=== PATIENT | male | born 1955 | race Caucasian/White ===

== ENCOUNTER 2018-08-25 10:06 | Emergency (ER) | payer OTHER ==
[~2018-08-25] VITALS: Ht 185.4 cm; Wt 105.7 kg
[2018-08-25] MEDS ORDERED: cefTRIAXone IM 1 GM VIAL IM ONE (10:15)
--- NOTE | 2018-08-25 10:22 | PHYS DOC ---
Past History Past Medical History: A-Fib Past Surgical History: Other Alcohol Use: None Drug Use: None Adult General Chief Complaint Chief Complaint: FOREIGN BODY HPI HPI 62-year-old male presents with foreign object in his right hand. The patient was working with some tools earlier today went to reach for a hammer and impaled his right thenar eminence with awl. It is 2-3 inches in length sticking into his hand. His , is concerned that his blood out without being at a medical facility so he came to the ED. The patient has no loss of feeling. There is no bleeding. He has full range of motion of all of his fingers. Patient denies any other injuries or complaints. Review of Systems Review of Systems Constitutional: Denies fever or chills [] Eyes: Denies change in visual acuity, redness, or eye pain [] HENT: Denies nasal congestion or sore throat [] Respiratory: Denies cough or shortness of breath [] Cardiovascular: No additional information not addressed in HPI [] GI: Denies abdominal pain, nausea, vomiting, bloody stools or diarrhea [] : Denies dysuria or hematuria [] Musculoskeletal: Foreign object in right hand[] Integument: Denies rash or skin lesions [] Neurologic: Denies headache, focal weakness or sensory changes [] Endocrine: Denies polyuria or polydipsia [] All other systems were reviewed and found to be within normal limits, except as documented in this note. Current Medications Current Medications Current Medications Medications (Trade) Dose Ordered Sig/[facility] Start Time Stop Time Status Last Admin Dose Admin Ceftriaxone Sodium (Rocephin Im) 1 gm 1X ONCE 08/25/18 10:15 08/25/18 10:16 UNV Allergies Allergies Allergies Coded Allergies Type Severity Reaction Last Updated Verified No Known Drug Allergies 07/08/15 No Physical Exam Physical Exam Constitutional: Well developed, well nourished, no acute distress, non-toxic appearance. [] HENT: Normocephalic, atraumatic, bilateral external ears normal, oropharynx moist, no oral exudates, nose normal. [] Eyes: PERRLA, EOMI, conjunctiva normal, no discharge. [] Neck: Normal range of motion, no tenderness, supple, no stridor. [] Cardiovascular:Heart rate regular rhythm, no murmur [] Lungs & Thorax: Bilateral breath sounds clear to auscultation [] Abdomen: Bowel sounds normal, soft, no tenderness, no masses, no pulsatile masses. [] Skin: Warm, dry, no erythema, no rash. [] Back: No tenderness, no CVA tenderness. [] Extremities: handle of an awl protruding from his right thenar eminence. Range of motion intact. Neurovascularly intact.[] Neurologic: Alert and oriented X 3, normal motor function, normal sensory function, no focal deficits noted. [] Psychologic: Affect normal, judgement normal, mood normal. [] EKG EKG [] Radiology/Procedures Radiology/Procedures [] Impressions: Right hand, 3 views, 08/25/2018: HISTORY: Intracranial right thumb with screwdriver There is an elongated radiopaque foreign body evident with its distal end projected over the soft tissues along the volar aspect of the proximal first metacarpal. It may abut the cortex, however, no underlying fracture is identified. There is mild degenerative change at the first MCP joint. IMPRESSION: 1. Radiopaque foreign body in the soft tissues as described above. 2. No acute bony abnormality is detected. Electronically signed by: Reid Thomas MD (08/25/2018 10:37 AM) [facility] DICTATED AND SIGNED BY: REID THOMAS MD DATE: 08/25/18 1034 CC: JOAN GREEN DO; DENAE REAL Course & Med Decision Making Course & Med Decision Making Pertinent Labs and Imaging studies reviewed. (See chart for details) The patient's x-rays did not show any additional foreign objects other than the tool. Do not appear to be any significant soft tissue edema. The tool was removed and a single motion. Pressure was applied to the wound. There was very minimal bleeding. Patient tolerated this well. We'll give him Tdap as well as 1 gram of Rocephin IM. He is stable for discharge at this time. I will discharge him with 7 days of Keflex. [] Dragon Disclaimer Dragon Disclaimer This electronic medical record was generated, in whole or in part, using a voice recognition dictation system. Departure Departure: Impression: Primary Impression: Foreign body of right hand Disposition: 01 HOME, SELF-CARE Condition: STABLE Referrals: DENAE REAL (PCP) Patient Instructions: Puncture Wound Scripts Cephalexin (KEFLEX) 500 Mg Capsule 1 CAP PO TID for prevent hand infection, #21 CAP Prov: JOAN RGEEN DO 08/25/18 Problem Qualifiers Primary Impression: Foreign body of right hand Encounter type: initial encounter Qualified Codes: S60.551A - Superficial foreign body of right hand, initial encounter JOAN GREEN DO Aug 25, 2018 10:22
[2018-08-25 10:23] VITALS: BP 156/90
--- NOTE | 2018-08-25 10:40 | RAD ---
Right hand, 3 views, 08/25/2018: HISTORY: Intracranial right thumb with screwdriver There is an elongated radiopaque foreign body evident with its distal end projected over the soft tissues along the volar aspect of the proximal first metacarpal. It may abut the cortex, however, no underlying fracture is identified. There is mild degenerative change at the first MCP joint. IMPRESSION: 1. Radiopaque foreign body in the soft tissues as described above. 2. No acute bony abnormality is detected. Electronically signed by: Reid Thomas MD (08/25/2018 10:37 AM) [facility]
[2018-08-25] MEDS ORDERED: CEPH-264 PO (10:51)
[2018-08-25] MEDS ORDERED: DIPHTH,PERTUSS(ACELL),TET TOX 0.5 ML DISP.SYRIN. VAX IM ONE (11:00)
== END 2018-08-25 11:02 | disposition home or self-care (01) ==
LOC: ER 10:06
DX: S60.551A Superficial foreign body of right hand, initial encounter (principal); I48.91 Unspecified atrial fibrillation; W45.8XXA Other foreign body or object entering through skin, initial encounter; Y93.89 Activity, other specified; Y92.89 Other specified places as the place of occurrence of the external cause; Y99.8 Other external cause status
CPT/HCPCS: 73130; 90471; 90715; 96372; 99284; J0696